=== PATIENT | male | born 1985 | race Caucasian/White ===

== ENCOUNTER 2021-05-31 16:32 | Emergency (ER) | payer OTHER ==
[~2021-05-31] VITALS: Ht 182.9 cm; Wt 72.6 kg
[2021-05-31] MEDS ORDERED: KETOROLAC TROMETH 60MG/2ML VIAL IM ONE (20:00)
[2021-05-31 20:22] VITALS: BP 132/79
== END 2021-05-31 20:54 | disposition home or self-care (01) ==
LOC: ER 16:32
DX: S46.911A Strain of unspecified muscle, fascia and tendon at shoulder and upper arm level, right arm, initial encounter (principal); W19.XXXA Unspecified fall, initial encounter; Y93.89 Activity, other specified; Y92.89 Other specified places as the place of occurrence of the external cause; Y99.8 Other external cause status
CPT/HCPCS: 73030; 96372; 99283; J1885